=== PATIENT | female | born 2000 | race African-American/Black ===

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

== ENCOUNTER 2021-01-17 20:09 | Emergency (ER) | payer MEDICAID ==
[~2021-01-17] VITALS: Ht 170.2 cm; Wt 99.5 kg
[~2021-01-17 20:09] MED LIST: NAPR-681 MT
[2021-01-17 20:26] VITALS: BP 131/62
[2021-01-17] MEDS ORDERED: LIDOCAINE HCL/PF 1% 10 MG/ML 5ML VIAL INFIL ONE (21:45)
[2021-01-17] MEDS ORDERED: BACITRACIN ZINC OINT UDPKT TOP ONE (21:45)
[2021-01-17] MEDS ORDERED: IBUP-2029 MT (22:42)
[2021-01-17] MEDS ORDERED: SULF1TAB48 MT (22:42)
[2021-01-17] MEDS ORDERED: SULFAMETHOXAZOLE/TRIMETHOPRIM 800/160MG TABLET PO ONE (22:45)
[2021-01-17] MEDS ORDERED: IBUPROFEN 600MG TABLET PO ONE (22:45)
== END 2021-01-17 23:16 | disposition home or self-care (01) ==
LOC: ER 20:09
DX: L02.31 Cutaneous abscess of buttock (principal); D57.1 Sickle-cell disease without crisis; F12.10 Cannabis abuse, uncomplicated
CPT/HCPCS: 10060; 81025; 87070; 87077; 87186; 87205; 99283; J3490; Z7610